=== PATIENT | female | born 1950 | race Caucasian/White ===

== ENCOUNTER 2017-05-28 16:28 | Emergency (ER) | payer OTHER ==
[~2017-05-28] VITALS: Ht 152.4 cm; Wt 59.0 kg
[2017-05-28] MEDS ORDERED: PERCOCET 5/31 TABLET PO (17:57)
[2017-05-28 18:24] VITALS: BP 156/104
[2017-06-04] MEDS ORDERED: OXYCODONE-ACET1 EACH PO (08:32)
[2017-06-04] MEDS ORDERED: TYLENOL REGULA325 MG PO (08:32)
[2017-06-04] MEDS ORDERED: NORVASC2.5 MG PO (08:33)
[2017-06-04] MEDS ORDERED: ZETIA10 MG PO (08:33)
[2017-06-04] MEDS ORDERED: MULTIPLE VITAM1 EACH PO (08:34)
[2017-06-04] MEDS ORDERED: VITAMIN D35000 UNIT PO (08:34)
[2017-06-04] MEDS ORDERED: ASPIRIN81 M2 PO (08:34)
[2017-06-04] MEDS ORDERED: OCUVITE TABLET1 EACH PO (08:35)
== END 2017-05-28 18:25 | disposition home or self-care (01) ==
LOC: EME 16:28
DX: S82.041A Displaced comminuted fracture of right patella, initial encounter for closed fracture (principal); W10.9XXA Fall (on) (from) unspecified stairs and steps, initial encounter; Y92.008 Other place in unspecified non-institutional (private) residence as the place of occurrence of the external cause; Z79.82 Long term (current) use of aspirin
CPT/HCPCS: 73564; 99281; 99283

== ENCOUNTER → 2017-06-03 | Outpatient (CLI) | payer MEDICARE, OTHER ==
[~2017-06-03] MED LIST: ASPIRIN81 M2 PO; MULTIPLE VITAM1 EACH PO; NORVASC2.5 MG PO; OCUVITE TABLET1 EACH PO; OXYCODONE-ACET1 EACH PO; PERCOCET 5/31 TABLET PO; TYLENOL REGULA325 MG PO; VITAMIN D35000 UNIT PO; ZETIA10 MG PO
== END | disposition home or self-care (01) ==
LOC: CDC 10:03
DX: Z01.810 Encounter for preprocedural cardiovascular examination (principal); R94.31 Abnormal electrocardiogram [ECG] [EKG]; M25.561 Pain in right knee
CPT/HCPCS: 93000

== ENCOUNTER 2017-06-06 12:22 | Day surgery (SDC) | payer OTHER ==
[~2017-06-06] VITALS: Ht 160 cm; Wt 59.0 kg
[2017-06-06 13:04] VITALS: BP 123/67
[2017-06-06 20:40] VITALS: BP 191/86
[2017-06-06 21:22] VITALS: BP 170/80
== END 2017-06-06 21:30 | disposition home or self-care (01) ==
LOC: SDC 12:22
PROC: 0QSD04Z Reposition Right Patella with Internal Fixation Device, Open Approach (ICD-10-PCS; principal; 2017-06-06)
DX: S82.041A Displaced comminuted fracture of right patella, initial encounter for closed fracture (principal); I10 Essential (primary) hypertension; E78.00 Pure hypercholesterolemia, unspecified; W10.9XXA Fall (on) (from) unspecified stairs and steps, initial encounter; Y93.01 Activity, walking, marching and hiking; Y92.009 Unspecified place in unspecified non-institutional (private) residence as the place of occurrence of the external cause; Z79.82 Long term (current) use of aspirin; Z87.891 Personal history of nicotine dependence
CPT/HCPCS: 73560; 76000; C1713; J0131; J0690; J1100; J1170; J1885; J2175; J2250; J3010